=== PATIENT | female | born 1970 | race Two or more races ===

== ENCOUNTER 2019-12-16 16:07 | Emergency (ER) | payer SELFPAY ==
[~2019-12-16] VITALS: Ht 152.4 cm; Wt 56.8 kg
[2019-12-16] MEDS ORDERED: KETOROLAC TROMETHAMINE 60 MG/2 ML VIAL IM ONE (19:15)
[2019-12-16 20:00] VITALS: BP 111/70
== END 2019-12-16 20:50 | disposition home or self-care (01) ==
LOC: EMS 16:10
DX: S46.812A Strain of other muscles, fascia and tendons at shoulder and upper arm level, left arm, initial encounter (principal); G89.29 Other chronic pain; M54.5 Low back pain; W18.39XA Other fall on same level, initial encounter; Y93.01 Activity, walking, marching and hiking; Y92.89 Other specified places as the place of occurrence of the external cause; Y99.8 Other external cause status
CPT/HCPCS: 96372; 99283; J1885